=== PATIENT | female | born 2000 ===

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

== ENCOUNTER 2019-07-10 17:26 | Inpatient (IN) | payer OTHER ==
[2019-07-10] MEDS ORDERED: Charcoal ACTIVATED* 25 GM/120 ML BTL NG TUBE ONE (18:52)
[2019-07-10] MEDS ORDERED: NS 0.9% 1000 ML** 1,000 ML IV ONE (18:52)
[2019-07-10 19:18] LABS: ABS Eosinophils 0.1 10^3/ul (0-0.6); ABS Lymphocytes 2.2 10^3/ul (1.0-4.8); ABS Monocytes 0.5 10^3/ul (0-0.8); ABS Neutrophils 4.8 10^3/ul (1.5-7.7); Eosinophil % 0.7 %; Hematocrit 41 % (35-47); Lymphocyte % 28.9 %; Mean Corpuscular HGB Conc 34 g/dL (31-36); Mean Corpuscular Hemoglobin 32 pg (27-31); Mean Corpuscular Volume 94 fL (80-97); Mean Platelet Volume 7.8 fL (7.4-10.4); Nucleated Red Blood Cells % 0.1; Platelet Count 247 10^3/uL (150-450); Red Blood Count 4.36 10^6 /uL (3.70-4.87); Red Cell Distribution Width 13 % (10-15); White Blood Count 7.6 10^3/uL (3.5-10.8)
[2019-07-10 19:52] LABS: Acetaminophen < 15 mcg/mL; Alcohol < 10 mg/dL (<10); Salicylate < 2.50 mg/dL (<30)
[2019-07-10 19:53] LABS: ALT 16 U/L (7-52); AST 18 U/L (13-39); Albumin 4.6 g/dL (3.2-5.2); Albumin/Globulin Ratio 1.9 (1-3); Alkaline Phosphatase 41 U/L (34-104); Anion Gap 6 mmol/L (2-11); BUN/Creatinine Ratio 18.7 (8-20); Blood Urea Nitrogen 14 mg/dL (6-24); CO2 Carbon Dioxide 27 mmol/L (22-32); Calcium 9.7 mg/dL (8.6-10.3); Chloride 105 mmol/L (101-111); EGFR African American 119.2 (>60); EGFR Non-African American 98.5 (>60); Globulin 2.4 g/dL (2-4); Glucose 116 mg/dL (70-100); Potassium 4.1 mmol/L (3.5-5.0); Sodium 138 mmol/L (135-145)
[2019-07-10 20:07] LABS: TSH (Thyroid Stimulating Horm) 0.54 mcIU/mL (0.34-5.60)
[2019-07-10 21:56] LABS: Urine Appearance Clear; Urine Bacteria 1+ (Absent); Urine Bilirubin Negative (Negative); Urine Blood Negative (Negative); Urine Color Straw; Urine Glucose Negative (Negative); Urine Ketones Negative (Negative); Urine Nitrite Negative (Negative); Urine Protein Negative (Negative); Urine Red Blood Cell Trace(0-2/hpf) (Absent); Urine Specific Gravity 1.005 (1.010-1.030); Urine Squamous Epithelial Cell Present (Absent); Urine Urobilinogen Negative (Negative); Urine White Blood Cell 1+(6-10/hpf) (Absent)
[2019-07-10 22:16] LABS: Urine Benzodiazepine Screen None Detected (None Detect); Urine Opiates Screen None Detected (None Detect)
--- NOTE | 2019-07-10 23:21 | ED ---
Psychiatric Complaint - HPI Summary HPI Summary: 19 year old female presents after an overdosing. She took Zoloft and hydroxyzine. She denies any symptoms currently. She is not tired. No nausea vomiting. No headache. No bowel pain. She states she has no history of cutting herself. She states she hadn't no plan prior to today. States she's had been on zoloft for 3 weeks ago. She states school is been very stressful. Denies any drug or alcohol use. - History Of Current Complaint Chief Complaint: EDOverdose Time Seen by Provider: 07/10/19 18:30 Hx Last Menstrual Period: [id number] - Allergies/Home Medications Allergies/Adverse Reactions: Allergies Allergy/AdvReac Type Severity Reaction Status Date / Time No Known Allergies Allergy Verified 09/15/18 18:12 Home Medications: Home Medications Sertraline* [Zoloft*] 50 mg PO DAILY 07/10/19 [History Confirmed 07/10/19] PMH/Surg Hx/FS Hx/Imm Hx Endocrine/Hematology History: Denies: Hx Anticoagulant Therapy Respiratory History: Denies: Hx Asthma - Surgical History Surgery Procedure, Year, and Place: Right arm fracture repair - Immunization History Immunizations Up to Date: Yes Infectious Disease History: No Infectious Disease History: Denies: Traveled Outside the [place] in Last 30 Days - Family History Known Family History: Positive: None - Pt denies FMHX - Social History Alcohol Use: Occasionally Substance Use Type: Reports: None Smoking Status (MU): Never Smoked Tobacco Review of Systems Negative: Fever Negative: Chest Pain Negative: Shortness Of Breath Positive: Depressed All Other Systems Reviewed And Are Negative: Yes Physical Exam Triage Information Reviewed: Yes Vital Signs On Initial Exam: Initial Vitals Temp Pulse Resp BP Pulse Ox 98.2 F 68 17 137/80 98 07/10/19 17:41 07/10/19 17:41 07/10/19 17:41 07/10/19 17:41 07/10/19 17:41 Vital Signs Reviewed: Yes Appearance: Positive: Well-Appearing Skin: Positive: Warm, Dry Head/Face: Positive: Normal Head/Face Inspection Eyes: Positive: Normal, EOMI, GABRIELE, Conjunctiva Clear ENT: Positive: Pharynx normal Respiratory/Lung Sounds: Positive: Clear to Auscultation, Breath Sounds Present Cardiovascular: Positive: Normal, RRR Musculoskeletal: Positive: Normal Neurological: Positive: Normal Psychiatric: Positive: Normal Diagnostics - Vital Signs Vital Signs Temp Pulse Resp BP Pulse Ox 07/10/19 21:44 89 16 136/71 97 07/10/19 21:12 80 21 140/73 97 07/10/19 21:00 86 23 97 07/10/19 20:42 81 21 147/69 100 07/10/19 20:14 82 18 125/69 98 07/10/19 20:00 86 14 98 07/10/19 19:42 88 24 133/96 97 07/10/19 19:12 26 142/81 07/10/19 19:00 78 19 97 07/10/19 18:42 67 25 136/84 98 07/10/19 18:12 17 139/91 07/10/19 18:00 21 07/10/19 17:44 73 22 137/80 98 07/10/19 17:42 68 21 99 07/10/19 17:41 98.2 F 68 17 137/80 98 - Laboratory Lab Results: Lab Results 07/10/19 07/10/19 07/10/19 Range/Units 19:09 19:09 21:45 WBC 7.6 (3.5-10.8) 10^3/uL RBC 4.36 (3.70-4.87) 10^6 /uL Hgb 14.0 (12.0-16.0) g/dL Hct 41 (35-47) % MCV 94 (80-97) fL MCH 32 H (27-31) pg MCHC 34 (31-36) g/dL RDW 13 (10-15) % Plt Count 247 (150-450) 10^3/uL MPV 7.8 (7.4-10.4) fL Neut % (Auto) 64.0 % Lymph % (Auto) 28.9 % Cole % (Auto) 6.0 % Eos % (Auto) 0.7 % Baso % (Auto) 0.4 % Absolute Neuts (auto) 4.8 (1.5-7.7) 10^3/ul Absolute Lymphs (auto) 2.2 (1.0-4.8) 10^3/ul Absolute Monos (auto) 0.5 (0-0.8) 10^3/ul Absolute Eos (auto) 0.1 (0-0.6) 10^3/ul Absolute Basos (auto) 0.0 (0-0.2) 10^3/ul Absolute Nucleated RBC 0.0 10^3/ul Nucleated RBC % 0.1 Sodium 138 (135-145) mmol/L Potassium 4.1 (3.5-5.0) mmol/L Chloride 105 (101-111) mmol/L Carbon Dioxide 27 (22-32) mmol/L Anion Gap 6 (2-11) mmol/L BUN 14 (6-24) mg/dL Creatinine 0.75 (0.51-0.95) mg/dL Est GFR ( Amer) 119.2 (>60) Est GFR (Non-Af Amer) 98.5 (>60) BUN/Creatinine Ratio 18.7 (8-20) Glucose 116 H (70-100) mg/dL Calcium 9.7 (8.6-10.3) mg/dL Total Bilirubin 0.30 (0.2-1.0) mg/dL AST 18 (13-39) U/L ALT 16 (7-52) U/L Alkaline Phosphatase 41 (34-104) U/L Total Protein 7.0 (6.4-8.9) g/dL Albumin 4.6 (3.2-5.2) g/dL Globulin 2.4 (2-4) g/dL Albumin/Globulin Ratio 1.9 (1-3) TSH 0.54 (0.34-5.60) mcIU/mL Urine Color Straw Urine Appearance Clear Urine pH 8.0 (5-9) Ur Specific Gibbs 1.005 L (1.010-1.030) Urine Protein Negative (Negative) Urine Ketones Negative (Negative) Urine Blood Negative (Negative) Urine Nitrate Negative (Negative) Urine Bilirubin Negative (Negative) Urine Urobilinogen Negative (Negative) Ur Leukocyte Esterase 3+ A (Negative) Urine WBC (Auto) 1+(6-10/hpf) A (Absent) Urine RBC (Auto) Trace(0-2/hpf) (Absent) Ur Squamous Epith Cells Present A (Absent) Urine Bacteria 1+ A (Absent) Urine Glucose Negative (Negative) Salicylates < 2.50 (<30) mg/dL Urine Opiates Screen (None Detect) Acetaminophen < 15 mcg/mL Ur Barbiturates Screen (None Detect) Ur Phencyclidine Scrn (None Detect) Ur Amphetamines Screen (None Detect) U Benzodiazepines Scrn (None Detect) Urine Cocaine Screen (None Detect) U Cannabinoids Screen (None Detect) Serum Alcohol < 10 (<10) mg/dL 07/10/19 Range/Units 21:45 WBC (3.5-10.8) 10^3/uL RBC (3.70-4.87) 10^6 /uL Hgb (12.0-16.0) g/dL Hct (35-47) % MCV (80-97) fL MCH (27-31) pg MCHC (31-36) g/dL RDW (10-15) % Plt Count (150-450) 10^3/uL MPV (7.4-10.4) fL Neut % (Auto) % Lymph % (Auto) % Cole % (Auto) % Eos % (Auto) % Baso % (Auto) % Absolute Neuts (auto) (1.5-7.7) 10^3/ul Absolute Lymphs (auto) (1.0-4.8) 10^3/ul Absolute Monos (auto) (0-0.8) 10^3/ul Absolute Eos (auto) (0-0.6) 10^3/ul Absolute Basos (auto) (0-0.2) 10^3/ul Absolute Nucleated RBC 10^3/ul Nucleated RBC % Sodium (135-145) mmol/L Potassium (3.5-5.0) mmol/L Chloride (101-111) mmol/L Carbon Dioxide (22-32) mmol/L Anion Gap (2-11) mmol/L BUN (6-24) mg/dL Creatinine (0.51-0.95) mg/dL Est GFR ( Amer) (>60) Est GFR (Non-Af Amer) (>60) BUN/Creatinine Ratio (8-20) Glucose (70-100) mg/dL Calcium (8.6-10.3) mg/dL Total Bilirubin (0.2-1.0) mg/dL AST (13-39) U/L ALT (7-52) U/L Alkaline Phosphatase (34-104) U/L Total Protein (6.4-8.9) g/dL Albumin (3.2-5.2) g/dL Globulin (2-4) g/dL Albumin/Globulin Ratio (1-3) TSH (0.34-5.60) mcIU/mL Urine Color Urine Appearance Urine pH (5-9) Ur Specific Gibbs (1.010-1.030) Urine Protein (Negative) Urine Ketones (Negative) Urine Blood (Negative) Urine Nitrate (Negative) Urine Bilirubin (Negative) Urine Urobilinogen (Negative) Ur Leukocyte Esterase (Negative) Urine WBC (Auto) (Absent) Urine RBC (Auto) (Absent) Ur Squamous Epith Cells (Absent) Urine Bacteria (Absent) Urine Glucose (Negative) Salicylates (<30) mg/dL Urine Opiates Screen None detected (None Detect) Acetaminophen mcg/mL Ur Barbiturates Screen None detected (None Detect) Ur Phencyclidine Scrn None detected (None Detect) Ur Amphetamines Screen None detected (None Detect) U Benzodiazepines Scrn None detected (None Detect) Urine Cocaine Screen None detected (None Detect) U Cannabinoids Screen None detected (None Detect) Serum Alcohol (<10) mg/dL Result Diagrams: 07/10/19 19:09 07/10/19 19:09 Lab Statement: Any lab studies that have been ordered have been reviewed, and results considered in the medical decision making process. Course/Dx - Course Course Of Treatment: 19 year old female presents after an overdosing. She took Zoloft and hydroxyzine. She denies any symptoms currently. She is not tired. No nausea vomiting. No headache. No bowel pain. She states she has no history of cutting herself. She states she hadn't no plan prior to today. States she's had been on zoloft for 3 weeks ago. She states school is been very stressful. Denies any drug or alcohol use. On exam has normal physical exam. EKG shows sinus rhythm. lab work without significant abnormality. Patient was observed for 6 hours and given charcoal and fluids. Patient is medical clear for mental health. patient will be signed out to dr owen pending for dispo. - Differential Dx/Clinical Impression Differential Diagnosis/HQI/PQRI: Positive: Anxiety, Depression, Suicidal Ideation Provider Diagnosis: Overdose, Depression Discharge ED - Sign-Out/Discharge Documenting (check all that apply): Sign-Out Patient Signing out patient TO: Storm Owen - Discharge Plan Referrals: No Primary Care Phys,NOPCP [Primary Care Provider] -
--- NOTE | 2019-07-11 03:40 | ED ---
Progress - Progress Note Progress Note: This pt is a signout from ESPINOZA Ivory to Dr. Owen at 0300 shift change pending MHE. At 0415, Dr. Cisneros says pt will be admitted. Dx is depressive disorder unspecified. - Consult/PCP Time Called: 23:11 Course/Dx - Course Course Of Treatment: This pt is a signout from ESPINOZA Ivory to Dr. Owen at 0300 shift change pending MHE. At 0415, Dr. Cisneros says pt will be admitted. Dx is depressive disorder unspecified. - Diagnoses Provider Diagnoses: Major depressive disorder, recurrent, unspecified - Provider Notifications Discussed Care Of Patient With: Elmer Cisneros Time Discussed With Above Provider: 04:15 Instructed by Provider To: Other - Dr. Cisneros says pt will be admitted. Discharge ED - Sign-Out/Discharge Documenting (check all that apply): Receiving Sign-Out Receiving patient FROM: Ana Ivory - This pt is a signout from ESPINOZA Ivory to Dr. Owen at 0300 shift change pending MHE. Patient Received Moderate/Deep Sedation with Procedure: No - Discharge Plan Condition: Stable Disposition: ADMITTED TO [facility] - Billing Disposition and Condition Condition: STABLE Disposition: Admitted to [facility] - Attestation Statements Document Initiated by Jasminibe: Yes Documenting Scribe: Mike Clayton Provider For Whom Joanna is Documenting (Include Credential): Dr. Storm Owen MD Scribe Attestation: Mike Quinonez scribed for Dr. Storm Owen MD on 07/11/19 at 0801. Scribe Documentation Reviewed: Yes Provider Attestation: The documentation as recorded by the Mike aguilar accurately reflects the service I personally performed and the decisions made by me, Dr. Storm Owen MD Status of Scribe Document: Viewed
[2019-07-11 05:01] LABS: HCG Pregnancy < 0.60 mIU/mL
[2019-07-11] MEDS ORDERED: Acetaminophen TAB* 325 MG PO PRN (06:05)
[2019-07-11] MEDS ORDERED: Al Hydrox/Mg Hydrox/Simet LIQ* 30 ML UDC PO PRN (06:06)
[2019-07-11] MEDS ORDERED: Influenza VAC *QUAD* 2019-20* 0.5 ML SYRINGE IM ONE (09:00)
--- NOTE | 2019-07-11 10:50 | HP ---
H&P (Free Text) History and Physical: Justification for admission: Immediate Safety. CC " I saw my ex girlfriend" The patient was brought to [facility] by EMS following a overdose of 25 pills of hydroxyzine and zoloft. She told her current girlfriend about taking the pills who then called 911. In the emergency room she received charcoal. The patient stated that she has been taking zoloft for 3 weeks and has felt that she experienced frequent mood changes. She reported that on Thursday she saw her ex girlfriend and since that time felt "different and low". She thought that by taking a overdose of medications would take away the pain she felt after seeing her ex-girlfriend. She denied access to firearms or stockpiles of medications. She reported early childhood education specialist awakening sleep pattern. She reported no changes in her appetite. The patient denied homicidal ideation intent or plan. The patient denied auditory and/ or visual hallucinations. MDD Denied feeling depressed and diminished interests which were found to be enjoyable in the past. She describes depression as not feeling like herself. She reported feelings of hopelessness , and worthlessness. She reported early childhood education specialist awakening sleep pattern. Denied unintentional weight loss and appetite.She reported loss of energy and lack of motivation to complete tasks. Anxiety Reported having symptoms of anxiety such as having times where her heart feels that it is beating out of chest , with sweaty palms, and tightness of her chest with rapid breathing. The frequency of panic attacks are once a month. Bipolar Denied symptoms of bhavana such as having many ideas at once. Denied increased talkativeness where no one can interrupt. Denied feeling irritable most of the time while having an persistent abundance of energy most of the day without the use of energy drinks, stimulants, or recreational drug use. Denied an increase in intensity in goal directed activities. Denied having the decreased need to sleep for days , having prolonged elevated mood , or feeling on top of the world. Denied impulsive risky sexual encounters. Denied spending money recklessly , going on spending sprees wiping out savings. Denied impulsively traveling out of town or country, having super wilson, and unrealistic wealth or fame. Psychosis Does not endorse hearing things that other people do not hear or seeing things other people do not see. Denied feeling that TV is making references. Denied feeling that people are spying , following , or reading their thoughts. Eating disorders: Patient denied having excessive eating habits or feelings of guilt after eating. Denied repeated episodes of self induced vomiting after eating. PTSD Denied flashbacks, nightmares and avoidance of a prior traumatic event. PAST PSYCHIATRIC HISTORY: Prior Diagnosis : Panic disorder History of past Psychiatric Hospitalizations: No prior psychiatric admission. History of past suicide/homicide attempts : Denied past suicide attempts. Cut self at age 16 for 3 months. No history of violence. Outpatient follow-up: Sports doctor Dr. Haywood Medications: Past trials of medications include zoloft 50mg daily. She started 3 weeks ago and has not been on any other medications in the past. Guardianship: None. FAMILY HISTORY: - Suicide: Denied family history of suicide. - Mental illness: Mother and brother have anxiety and depression. Their current treatment is unknown. - Substance abuse: Denied substance abuse among family members. SUBSTANCE ABUSE HISTORY: Denied using alcohol, tobacco, heroin cocaine or other illicit substances. Denied abusing pills for recreational use. Denied past Substance abuse treatment. SOCIAL HISTORY: - Denied a history of childhood physical and or sexual abuse Born in [place] and raised by both parents. She reported having a good childhood with a dramatic mother. She reported having a close relationship with her father. - Education: No history of special education. 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 - Living situation: Currently lives in [facility] and plays soccer at [employer]. - Employment history: None - Relationship: Single and has no children. Identifies as bisexual - Legal history: Denied - service history: Denied PAST MEDICAL HISTORY: 4 x concussions from sports injury , never lost consciousness. - Allergies: Denied drug or other allergies. Physical Exam: Please see ED note Mental Status Exam on Admission APPEARANCE : 19 year old who appears stated age. Patient is not malodourous, and appears to have fair hygiene and grooming. BEHAVIOR: Cooperative , calm EYE CONTACT: Fair PSYCHOMOTOR ACTIVITY: No psychomotor agitation or retardation. MOVEMENTS: No abnormal movements observed. SPEECH : Normal rate, rhythm, volume and tone. MOOD : "Anxious " AFFECT : Type is depressed, Range is restricted Mood Incongruent THOUGHT PROCESS: Formulated and organized in a logical, linear goal directed manner. No flight of ideas, neologism (made up words) , perseveration , tangential , loose associations , or circumstantiality. THOUGHT CONTENT: no delusions, obsessions, phobias or preoccupations. PERCEPTION: No current auditory or visual hallucinations. Doesnt appear to be responding to internal cues. No evidence of depersonalization , de-realization, or illusions SUICIDALITY Recent suicide attempt HOMICIDALITY Denied homicidal ideation, intent or plan. Insight/judgment: Poor insight and judgment ORIENTATION: Oriented to self, location, and time. Diagnosis on Admission: Major depressive disorder, severe, Panic disorder. Assessment: 19 year old with history of anxiety and recent suicide attempt came to the hospital and was admitted to the [facility] at [facility]. Plan #Admit to BSU, Q15 minute observation. Start regular diet. Encourage participation in activities on the milieu. #Patient evaluated in ED and was determined by the emergency room Physician to be medically fit for admission to the BSU. # Justification for Admission: For immediate safety per outlined in the [place] Mental Hygiene Code. # The patient requires psychiatric inpatient admission at this time to assure safety, receive treatment and work toward stabilization. # Labs ordered: CBC, CMP, UDS, TSH, HBA1c, TSH, Toxicology screen, Urine analysis, and lipid profile. # EKG results available # B-HCG was ordered and results are negative. # Obtain collateral information once release is signed. # Collaboration with Social Work #Start effexor 37.5mg daily #Goals before discharge include: To eliminate/ reduce suicidal ideation Tentative Discharge: Pending psychiatric stabilization The risks, benefits, and alternative treatment options were discussed as well as the risks of refusing treatment. After this discussion and an acknowledgement of this understanding was made. A risk/ benefit assessment of treatment was considered and discussed with the patient. When comparing the risks of treatment with the dangers of not receiving treatment, the benefits of treatment outweigh the treatment risks at this time. Risks of allergy, suicidal ideation, behavioral changes, dystonia, rashes, electrolyte imbalances, movement disorders, cardiac conduction changes, serotonin syndrome, metabolic risks were among some of the risks discussed. Sodium 138 mmol/L (135-145) 07/10/19 19:09 Potassium 4.1 mmol/L (3.5-5.0) 07/10/19 19:09 BUN 14 mg/dL (6-24) 07/10/19 19:09 Creatinine 0.75 mg/dL (0.51-0.95) 07/10/19 19:09 Calcium 9.7 mg/dL (8.6-10.3) 07/10/19 19:09 AST 18 U/L (13-39) 07/10/19 19:09 ALT 16 U/L (7-52) 07/10/19 19:09 Vital Signs Temp Pulse Resp BP Pulse Ox 98.0 F 60 14 136/79 100 07/11/19 11:03 07/11/19 11:03 07/11/19 11:03 07/11/19 11:03 07/11/19 11:03 Acetaminophen (Tylenol Tab*) 650 mg PO Q4H PRN PRN Reason: PAIN; OR TEMP >101 Al Hydrox/Mg Hydrox/Simethicone (Maalox Plus*) 30 ml PO Q4H PRN PRN Reason: INDIGESTION Multivitamins/Minerals (Theragran/Minerals Tab*) 1 tab PO DAILY IVY Venlafaxine HCl (Effexor Xr Cap*) 37.5 mg PO DAILY IVY
[2019-07-11] MEDS ORDERED: Dextran 70/Hypromellose Tears Eye Drops 15 ml BTL (for Artificials Tears) BOTH EYES PRN (14:07)
[2019-07-11] MEDS: Multivitamins/Minerals TAB PO SCH (14:11)
[2019-07-11] MEDS: Venlafaxine EXT RELEASE CAP* 37.5 MG PO SCH (14:11)
[2019-07-12 08:21] LABS: HDL Cholesterol 72.3 mg/dL
[2019-07-12] MEDS: Multivitamins/Minerals TAB PO SCH (08:54)
[2019-07-12] MEDS: Venlafaxine EXT RELEASE CAP* 37.5 MG PO SCH (08:54)
--- NOTE | 2019-07-12 08:59 | PN ---
Subjective - Subjective Date of Service: 07/12/19 Service Type: 13896 Hosp care 35 min high complexity Subjective: Nursing Report: Patient was visible on unit, no behavioral incidents. Slept overnight. CC: "okay Patient was seen and evaluated today in the common room. The patient reported talking to her mother today. Patient minimizing suicide attempt. Patient reported having anticipation of adverse effects from medications but has not experienced any yet. She reported having an adequate appetite and sleep. The patient reports attending and participating in day groups. Per nursing no behavioral issues or overnight events reported. Objective - General Observations Appearance: Disheveled Appears Stated Age: Yes Stature: WNL Posture: WNL Eye Contact: Avoidant Behavior/Activity: Slowed - Interaction Observations Attitude Towards Examiner: Defensive Stated Mood: Dysphoric Affect: Blunted Speech Pattern/Tone: Quiet Volume Thought Process: Blocking Perception: WNL Thought Content: Depressive Thought Process: Lethality: Passive Wish Hallucination Type: None Delusion Type: Somatic - Cognitive Function Orientation: A&O x 4 Level of Consciousness: Awake - Medication Compliance Cooperative with Inpatient Medication Regimen: Yes - Group Participation Participates in Group Activities: Yes Assessment - Assessment Merits Inpatient Hospitalization: For Immediate Safety Clinical Impression: 19 year old with history of anxiety and recent suicide attempt came to the hospital and was admitted to the BSU at [facility]. Plan - Plan Treatment Plan: Name: MARCELA HWANG Birthdate: 2000 [id number] # Q30 minute observation with staff pass and computer access . # The patient requires psychiatric inpatient admission at this time to assure safety, receive treatment and work toward stabilization. # B-HCG was ordered and results are negative. # Obtain collateral information once release is signed. # Collaboration with Social Work # Increase effexor 75mg daily for anxiety and depression # Mother also treated for anxiety with zoloft 200mg daily. #Goals before discharge include: To eliminate/ reduce suicidal ideation Tentative Discharge: Pending psychiatric stabilization Sodium 138 mmol/L (135-145) 07/10/19 19:09 Potassium 4.1 mmol/L (3.5-5.0) 07/10/19 19:09 BUN 14 mg/dL (6-24) 07/10/19 19:09 Creatinine 0.75 mg/dL (0.51-0.95) 07/10/19 19:09 Hemoglobin A1c 5.2 % (4.0-5.6) 07/12/19 07:49 Calcium 9.7 mg/dL (8.6-10.3) 07/10/19 19:09 AST 18 U/L (13-39) 07/10/19 19:09 ALT 16 U/L (7-52) 07/10/19 19:09 Triglycerides 102 mg/dL 07/12/19 07:49 Cholesterol 162 mg/dL 07/12/19 07:49 LDL Cholesterol 69 mg/dL 07/12/19 07:49 Continued Medication Management: Continue Outpt Medication Medications: Current Medications Acetaminophen (Tylenol Tab*) 650 mg PO Q4H PRN PRN Reason: PAIN; OR TEMP >101 Al Hydrox/Mg Hydrox/Simethicone (Maalox Plus*) 30 ml PO Q4H PRN PRN Reason: INDIGESTION Artificial Tears (Natural Balance Tears Eye Drop) 1 drop BOTH EYES Q2H PRN PRN Reason: DRY EYE Multivitamins/Minerals (Theragran/Minerals Tab*) 1 tab PO DAILY [facility] Last Admin: 07/12/19 08:54 Dose: 1 tab Venlafaxine HCl (Effexor Xr Cap*) 75 mg PO DAILY IVY - Discharge Plan Discharge Plan: Inpatient Hospitalization
[2019-07-13] MEDS ORDERED: Venlafaxine EXT RELEASE CAP* 75 MG PO SCH ×2 (09:00→21:00)
--- NOTE | 2019-07-13 10:14 | PN ---
Subjective - Subjective Date of Service: 07/13/19 Service Type: 79402 Hosp care 35 min high complexity Subjective: Nursing Report: Patient was visible on unit, no behavioral incidents. Slept overnight. CC: "Fine" Patient was seen and evaluated in the common room. The patient reported feels safe on the unit and is interacting with peers. She had friends visit during visiting hours. She reported having adequate appetite and sleep. Did not attend groups yesterday but plans to go today. Her mother is expected to visit this afternoon. Per nursing no behavioral issues or overnight events reported. Patient reported that she is tolerating medications without side effects. Mother confirmed no access to firearms or stockpiles of medications. Objective - General Observations Appearance: Neat Stature: WNL Posture: WNL Eye Contact: Average Behavior/Activity: WNL - Interaction Observations Attitude Towards Examiner: Cooperative Stated Mood: Euthymic Affect: Full Speech Pattern/Tone: Clear Thought Process: Coherent Perception: WNL Thought Content: Self-Deprecatory Hallucination Type: None Delusion Type: None - Cognitive Function Orientation: A&O x 4 Level of Consciousness: Awake - Medication Compliance Cooperative with Inpatient Medication Regimen: Yes - Group Participation Participates in Group Activities: Partial Assessment - Assessment Merits Inpatient Hospitalization: For Immediate Safety Clinical Impression: 19 year old with history of anxiety and recent suicide attempt came to the hospital and was admitted to the BSU at [facility]. Plan - Plan Treatment Plan: Name: MARCELA HWANG Birthdate: 2000 [id number] # Q30 minute observation with staff pass and computer access . # The patient requires psychiatric inpatient admission at this time to assure safety, receive treatment and work toward stabilization. # B-HCG was ordered and results are negative. # Obtain collateral information once release is signed. # Collaboration with Social Work # Continue effexor 75mg qhs for anxiety and depression # Mother also treated for anxiety with zoloft 200mg daily. #Met with mother today. #Goals before discharge include: To eliminate/ reduce suicidal ideation Tentative Discharge: Tomorrow Sodium 138 mmol/L (135-145) 07/10/19 19:09 Potassium 4.1 mmol/L (3.5-5.0) 07/10/19 19:09 BUN 14 mg/dL (6-24) 07/10/19 19:09 Creatinine 0.75 mg/dL (0.51-0.95) 07/10/19 19:09 Hemoglobin A1c 5.2 % (4.0-5.6) 07/12/19 07:49 Calcium 9.7 mg/dL (8.6-10.3) 07/10/19 19:09 AST 18 U/L (13-39) 07/10/19 19:09 ALT 16 U/L (7-52) 07/10/19 19:09 Triglycerides 102 mg/dL 07/12/19 07:49 Cholesterol 162 mg/dL 07/12/19 07:49 LDL Cholesterol 69 mg/dL 07/12/19 07:49 Continued Medication Management: Continue Outpt Medication Medications: Current Medications Acetaminophen (Tylenol Tab*) 650 mg PO Q4H PRN PRN Reason: PAIN; OR TEMP >101 Al Hydrox/Mg Hydrox/Simethicone (Maalox Plus*) 30 ml PO Q4H PRN PRN Reason: INDIGESTION Artificial Tears (Natural Balance Tears Eye Drop) 1 drop BOTH EYES Q2H PRN PRN Reason: DRY EYE Multivitamins/Minerals (Theragran/Minerals Tab*) 1 tab PO DAILY [facility] Last Admin: 07/12/19 08:54 Dose: 1 tab Venlafaxine HCl (Effexor Xr Cap*) 75 mg PO 2100 IVY - Discharge Plan Discharge Plan: Inpatient Hospitalization Outpatient Program: Private Clinician(s)
[2019-07-13] MEDS: Multivitamins/Minerals TAB PO SCH (10:56)
[2019-07-13 11:08] VITALS: BP 120/72
--- NOTE | 2019-07-13 16:29 | PN ---
BSU: Group Therapy Note - Service Type Service Type: 70423 Group Psychotherapy - Roxann participated when prompted. She was attentive and appropriate. - Group Participation Patient Participating in Group: Yes Level of Group Participation: Attentive, Participates When Prompte Relatedness to Group: Well Related
[2019-07-14] MEDS: Multivitamins/Minerals TAB PO SCH (08:51)
--- NOTE | 2019-07-14 10:31 | DS ---
Subjective - Subjective Service Types: 15862 [facility] Day Mgmt complex over 30 min Discharge Date: 07/14/19 Subjective: CC: " I am ready to be discharged" Patient looks forward to playing soccer and hanging out with her friends. She wants to live for her family and friends. The patient was seen and evaluated before discharge today. The patient reported having adequate appetite and sleep. The patient reports attending and participating in day groups. Per nursing no behavioral issues or overnight events reported. Patient reported tolerating medications without side effects. Justification for admission: Immediate Safety. CC " I saw my ex girlfriend" The patient was brought to [facility] by EMS following a overdose of 25 pills of hydroxyzine and zoloft. She told her current girlfriend about taking the pills who then called 911. In the emergency room she received charcoal. The patient stated that she has been taking zoloft for 3 weeks and has felt that she experienced frequent mood changes. She reported that on Thursday she saw her ex girlfriend and since that time felt "different and low". She thought that by taking a overdose of medications would take away the pain she felt after seeing her ex-girlfriend. She denied access to firearms or stockpiles of medications. 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 She reported no changes in her appetite. The patient denied homicidal ideation intent or plan. The patient denied auditory and/ or visual hallucinations. MDD Denied feeling depressed and diminished interests which were found to be enjoyable in the past. She describes depression as not feeling like herself. She reported feelings of hopelessness , and worthlessness. 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 Denied unintentional weight loss and appetite.She reported loss of energy and lack of motivation to complete tasks. Anxiety Reported having symptoms of anxiety such as having times where her heart feels that it is beating out of chest , with sweaty palms, and tightness of her chest with rapid breathing. The frequency of panic attacks are once a month. Bipolar Denied symptoms of bhavana such as having many ideas at once. Denied increased talkativeness where no one can interrupt. Denied feeling irritable most of the time while having an persistent abundance of energy most of the day without the use of energy drinks, stimulants, or recreational drug use. Denied an increase in intensity in goal directed activities. Denied having the decreased need to sleep for days , having prolonged elevated mood , or feeling on top of the world. Denied impulsive risky sexual encounters. Denied spending money recklessly , going on spending sprees wiping out savings. Denied impulsively traveling out of town or country, having super wilson, and unrealistic wealth or fame. Psychosis Does not endorse hearing things that other people do not hear or seeing things other people do not see. Denied feeling that TV is making references. Denied feeling that people are spying , following , or reading their thoughts. Eating disorders: Patient denied having excessive eating habits or feelings of guilt after eating. Denied repeated episodes of self induced vomiting after eating. PTSD Denied flashbacks, nightmares and avoidance of a prior traumatic event. PAST PSYCHIATRIC HISTORY: Prior Diagnosis : Panic disorder History of past Psychiatric Hospitalizations: No prior psychiatric admission. History of past suicide/homicide attempts : Denied past suicide attempts. Cut self at age 16 for 3 months. No history of violence. Outpatient follow-up: Sports doctor Dr. Haywood Medications: Past trials of medications include zoloft 50mg daily. She started 3 weeks ago and has not been on any other medications in the past. Guardianship: None. FAMILY HISTORY: - Suicide: Denied family history of suicide. - Mental illness: Mother and brother have anxiety and depression. Their current treatment is unknown. - Substance abuse: Denied substance abuse among family members. SUBSTANCE ABUSE HISTORY: Denied using alcohol, tobacco, heroin cocaine or other illicit substances. Denied abusing pills for recreational use. Denied past Substance abuse treatment. SOCIAL HISTORY: - Denied a history of childhood physical and or sexual abuse Born in [place] and raised by both parents. She reported having a good childhood with a dramatic mother. She reported having a close relationship with her father. - Education: No history of special education. 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 - Living situation: Currently lives in [facility] and plays soccer at [employer]. - Employment history: None - Relationship: Single and has no children. Identifies as bisexual - Legal history: Denied - service history: Denied PAST MEDICAL HISTORY: 4 x concussions from sports injury , never lost consciousness. - Allergies: Denied drug or other allergies. Physical Exam: Please see ED note Mental Status Exam on Admission APPEARANCE : 19 year old who appears stated age. Patient is not malodourous, and appears to have fair hygiene and grooming. BEHAVIOR: Cooperative , calm EYE CONTACT: Fair PSYCHOMOTOR ACTIVITY: No psychomotor agitation or retardation. MOVEMENTS: No abnormal movements observed. SPEECH : Normal rate, rhythm, volume and tone. MOOD : "Anxious " AFFECT : Type is depressed, Range is restricted Mood Incongruent THOUGHT PROCESS: Formulated and organized in a logical, linear goal directed manner. No flight of ideas, neologism (made up words) , perseveration , tangential , loose associations , or circumstantiality. THOUGHT CONTENT: no delusions, obsessions, phobias or preoccupations. PERCEPTION: No current auditory or visual hallucinations. Doesnt appear to be responding to internal cues. No evidence of depersonalization , de-realization, or illusions SUICIDALITY Recent suicide attempt HOMICIDALITY Denied homicidal ideation, intent or plan. Insight/judgment: Poor insight and judgment ORIENTATION: Oriented to self, location, and time. Diagnosis on Admission: Major depressive disorder, severe, Panic disorder. Diagnosis on Discharge :Major depressive disorder, in partial remission. Panic disorder. Condition at the time of discharge: At the time of discharge patient showed improvement of sleep and appetite. The patient was not a danger to self or others. The patient denied suicidal ideation, intent or plan. The patient denied homicidal targets, ideation, intent or plan. This patient participated in psychosocial rehabilitation and gained some insight into problems. The patient gained insight into mental illness, triggers, and treatment. The patient took medication as prescribed. The patient denied side effects of medication and objective signs of side effects were not evident. Therapy Resources were offered to the patient. Patient was given a supply of prescriptions at the time of discharge. The patient plans to attend follow up care with the follow up arrangements that were discussed and put in place. Patient was asked to keep appointments as scheduled, take medication as prescribed, have routine follow up care with their primary care physician and refrain from any use of alcohol or drugs. Objective - General Observations Appearance: Neat Appears Stated Age: Yes Stature: WNL Posture: WNL Eye Contact: Average Behavior/Activity: WNL - Interaction Observations Attitude Towards Examiner: Cooperative Stated Mood: Euthymic Affect: Full Speech Pattern/Tone: Appropriate Thought Process: Coherent Perception: WNL Thought Content: WNL Hallucination Type: None Delusion Type: None - Cognitive Function Orientation: A&O x 4 Level of Consciousness: Awake Cognition: WNL - Medication Compliance Cooperative with Inpatient Medication Regimen: Yes - Group Participation Participates in Group Activities: Yes Treatment Course & Assessment Clinical Course & Impression: Hospital course part A: 19 year old with history of anxiety and recent suicide attempt came to the hospital and was admitted to the BSU at [facility]. Hospital course part B: Labs ordered included CBC, CMP, UDS, TSH, HBA1c, TSH, Toxicology screen, Urine analysis, EKG, and lipid profile. Labs were reviewed and did not require the need for further evaluation. Vital signs were monitored during the course of admission. The patient was admitted to the adult behavioral unit and placed on 15 minute check for safety. At a later time the patient was on Q30 minute observation and staff pass privileges. With those limits being extended, patient was safe on all checks and there were no occurrence of behavioral incidents. The patient did well on the unit and went to groups. Interacted with peers had adequate sleep and regular appetite. Tolerated medication changes without side effects. Group therapy and services were offered. The risks, benefits, and alternative treatment options were discussed as well as of the risks of refusing treatment. Treatment associated risks discussed. After this discussion made an acknowledgement of this understanding. Follow up care appointments were put in place. The importance of monitoring for metabolic changes was discussed and acknowledgement of this understanding was made. The patient was informed not to abruptly stop or start new medications before consulting with a medical professional. Improvements in patient from the time of admission include: Improved affect, sleep and decrease in anxiety. The patient expressed readiness for discharge home. The patient presents with a broader range of affect, and the absence of depressed mood, delusions, perceptual disturbance. The patient denied suicidal and or homicidal ideation intent or plan. Overall, the patient responded well to inpatient treatment as evidenced by their report of strengthening of coping mechanisms, reduced distress, and more positive outlook on circumstances. Of note there was an improvement of recognizing how emotional state can effect mood and behavior. Safety precautions were put in place which included involving the patient and their family to closely monitor for changes in mental state. In addition, implementing follow up care, screening for the need to remove/securing firearms , weapons and stockpile of medications. Patient/ family instructed to immediately call 911 should any safety concerns arise. B-HCG is negative for current . She was informed of the risks associated with medication in . In the event that she becomes in the future and was advised to talk with her outpatient healthcare provider about starting or stopping medications during . The patient was advised of the 24 hour / 7 days a week availability of the emergency room and to call 911 in the event of an emergency such as being suicidal and/ or homicidal. The patient was informed of the contact information for [facility], Suicide Prevention and Crisis Services, National Suicide Prevention Lifeline, [facility], Alcoholics Anonymous, and [facility]. Medications started included discontinuing zoloft and starting effexor 75mg daily for panic disorder and depression. Family meeting took place before discharge. The patients mother expressed the importance that she have more follow up care. At this time both the patient and family are eager for discharge and are in agreement with the discharge plan set forth by the treatment team and can safely receive care in the less restrictive outpatient setting. They were advised on how the days following discharge can be a vulnerable period and to look out for warning signs associated with decompensation and progression of mental illness. They were notified of the resources available in the event these situations arise and confirmed that the patient has no access to firearms or stock piles of medications. Patient was not assaultive or a behavioral problem during the course of admission. The patient showed improvement of hygiene and was able to carry out activities of daily living. Patient will be discharged to live at home. Follow up appointment at [facility] with Dr. Lucia on Thursday07/16/19 at 230pm. Patient informed of follow up appointment times. See more details for follow up care in the discharge plan. Risk factors were mitigated by establishing the patients baseline with close contacts and arranging a family meeting. Implementing precautionary safety measures by confirming no stockpiles of medications and no access to firearms , creating and discussing safety plan, providing mental health treatment, stabilization of depressive features, arrangement of outpatient continuation of care, as well as provided a supportive care environment and therapy resources during the course of hospitalization. Risk factors: , single, history of depression Recent suicide attempt. Protective factors: Currently no suicidal ideation, intent or plan. Lives with others. Has social/ family support system. No history of service. Currently no feelings of hopelessness, not in an occupation of social isolation, doesnt have multiple medical conditions, no family history of suicide, doesnt have access to firearms. Doesnt have command hallucinations and or psychotic features at this time. No current substance abuse. No current alcohol abuse. Not an anniversary of a loss of a loved one. No changes in relationship status , housing, job, or school. Currently future orientated. Patient engaged in treatment and compliant with medication. Sodium 138 mmol/L (135-145) 07/10/19 19:09 Potassium 4.1 mmol/L (3.5-5.0) 07/10/19 19:09 BUN 14 mg/dL (6-24) 07/10/19 19:09 Creatinine 0.75 mg/dL (0.51-0.95) 07/10/19 19:09 Hemoglobin A1c 5.2 % (4.0-5.6) 07/12/19 07:49 Calcium 9.7 mg/dL (8.6-10.3) 07/10/19 19:09 AST 18 U/L (13-39) 07/10/19 19:09 ALT 16 U/L (7-52) 07/10/19 19:09 Triglycerides 102 mg/dL 07/12/19 07:49 Cholesterol 162 mg/dL 07/12/19 07:49 LDL Cholesterol 69 mg/dL 07/12/19 07:49 Vital Signs Temp Pulse Resp BP Pulse Ox 97.8 F 76 16 120/72 100 07/13/19 07:48 07/13/19 07:48 07/13/19 13:30 07/13/19 07:48 07/13/19 07:48 Merits Inpatient Hospitalization: No Clear for Discharge: Adequate Clinical Respons Discharge Planning - Discharge Planning Discharge Plan: Outpatient Follow Up Outpatient Program: [facility] Recommendations for Continuing Care: Medication Management Medications: Current Medications Acetaminophen (Tylenol Tab*) 650 mg PO Q4H PRN PRN Reason: PAIN; OR TEMP >101 Al Hydrox/Mg Hydrox/Simethicone (Maalox Plus*) 30 ml PO Q4H PRN PRN Reason: INDIGESTION Artificial Tears (Natural Balance Tears Eye Drop) 1 drop BOTH EYES Q2H PRN PRN Reason: DRY EYE Multivitamins/Minerals (Theragran/Minerals Tab*) 1 tab PO DAILY [facility] Last Admin: 07/14/19 08:51 Dose: 1 tab Venlafaxine HCl (Effexor Xr Cap*) 75 mg PO 2100 [facility] Last Admin: 07/13/19 21:09 Dose: 75 mg Discharge Planning: Prescriptions provided for discharge [x] Yes [] No Follow up care details as per social work arrangements. Patient response to discharge plan: [x] eager for discharge [] agreeable with discharge plan [] ambivalent about discharge [] disagrees with discharge today
== END 2019-07-14 11:46 | disposition home or self-care (01) | DRG 751 ==
LOC: ED 17:26 → BSU 07-11 03:09
PROVIDERS: ADMIT Psychiatry & Neurology Psychiatry; ATTEND Psychiatry & Neurology Psychiatry
PROC: GZHZZZZ Group Psychotherapy (ICD-10-PCS; principal; 2019-07-13)
DX: F33.2 Major depressive disorder, recurrent severe without psychotic features (principal); F41.0 Panic disorder [episodic paroxysmal anxiety]; T43.222A Poisoning by selective serotonin reuptake inhibitors, intentional self-harm, initial encounter; T43.592A Poisoning by other antipsychotics and neuroleptics, intentional self-harm, initial encounter; Y92.009 Unspecified place in unspecified non-institutional (private) residence as the place of occurrence of the external cause; Z72.89 Other problems related to lifestyle; Z23 Encounter for immunization
CPT/HCPCS: 36415; 80053; 80061; 80307; 80320; 80329; 81003; 81015; 83036; 84443; 84702; 85025; 87086; 90686; 90853; 93005; 99222; 99233; 99238; 99284; A9270-GY; G0480